=== PATIENT | male | born 1945 | race Caucasian/White ===

== ENCOUNTER 2016-07-18 18:48 | Emergency (ER) | payer MEDICARE, OTHER ==
[~2016-07-18] VITALS: Ht 172.7 cm; Wt 94.9 kg
[~2016-07-18 18:48] MED LIST: 1-ME1LIQ PO; ALLO100T PO; INDA2.5T PO; LATA0.00 OP; LISI-366 PO; RIVA15 PO; ROSU5 PO; SINE25TA PO
[2016-07-18 18:58] VITALS: BP_SYST 174; BP_DIAS 9; BP_DIAS 97; PULSE 95; RESP 16; TEMP 98.3; O2SAT 98
[2016-07-18] MEDS ORDERED: CARB1TAB52 PO (19:34)
[2016-07-18] MEDS ORDERED: LISI40TA PO (19:34)
[2016-07-18] MEDS ORDERED: ROSU5 PO (19:34)
[2016-07-18] MEDS ORDERED: INDA2.5T (19:34)
[2016-07-18] MEDS ORDERED: LATA0.002 EACH EYE (19:34)
[2016-07-18] MEDS ORDERED: CARB1CAP PO (19:35)
--- NOTE | 2016-07-18 20:53 | PD ---
HPI Chief Complaint: Fall Time Seen by Provider: 19:21 Travel History International Travel<30 days: No Contact w/Intl Traveler<30days: No Traveled to known affect area: No History of Present Illness HPI 70-year-old male arrives to the ER after a mechanical fall. He fell down about 3 fairly short steps. He struck his occipital scalp causing some bleeding. He did not lose consciousness. He has had no neck pain or focal weakness or paresthesia. No vomiting has occurred. He takes a baby aspirin. He takes no other anticoagulation. The fall occurred about 1 hour prior to ER arrival. [facility] Past Medical History High Cholesterol: Yes Diminished Hearing: Yes Glaucoma: Yes Hypertension: Yes Parkinson's Disease: Yes (multisystem atrophy) Past Surgical History Tonsillectomy: Yes Other Surgery: Yes (ganglian cyst removal left hand) Social History Alcohol Use: No Tobacco Use: No Substance Use: No Allergies-Medications (Allergen,Severity, Reaction): Coded Allergies: No Known Allergies (Unverified , 03/23/15) Reported Meds & Prescriptions Reported Meds & Active Scripts Active Reported Rytary ER 8 HR (Carbidopa-Levodopa ER 8 HR) 23.75-95 Mg Cap 1 Cap PO TID Latanoprost Opth Drops (Latanoprost) 0.005% Drops 1 Drop EACH EYE HS Refrigerate until opened. Indapamide 2.5 Mg Tab Lisinopril 40 Mg Tab 40 Mg PO DAILY Carbidopa 25 Mg Tab 25 Mg PO DAILY Crestor (Rosuvastatin Calcium) 5 Mg Tab 5 Mg PO DAILY Review of Systems Except as stated in HPI: all other systems reviewed are Neg Physical Exam Narrative GENERAL: 70-year-old male pleasant well-nourished well-developed SKIN: Focused skin assessment warm/dry. HEAD: Normocephalic. There is a 1 cm linear abrasion in the occipital scalp which would not benefit from staple or suture repair. EYES: Pupils equal and round. No scleral icterus. No injection or drainage. ENT: No nasal bleeding or discharge. Mucous membranes pink and moist. NECK: Trachea midline. No JVD. CARDIOVASCULAR: Regular rate and rhythm. No murmur appreciated. RESPIRATORY: No accessory muscle use. Clear to auscultation. Breath sounds equal bilaterally. GASTROINTESTINAL: Abdomen soft, non-tender, nondistended. Hepatic and splenic margins not palpable. MUSCULOSKELETAL: No obvious deformities. No clubbing. No cyanosis. No edema. NEUROLOGICAL: Awake and alert. The cranial nerves are normal. Patient's moving all extremities normally. PSYCHIATRIC: Appropriate mood and affect; insight and judgment normal. Data Data Last Documented VS Vital Signs Date Time Temp Pulse Resp B/P Pulse Ox O2 Delivery O2 Flow Rate FiO2 07/18/16 20:21 Room Air 07/18/16 18:58 98.3 95 16 174/97 98 Vital signs reviewed Orders Ct Brain W/O Iv Contrast(Rout) (07/18/16 19:29) Tetanus/Diphtheria Tox Adult (Tetanus/Di (07/18/16 21:00) MDM Medical Decision Making Medical Screen Exam Complete: Yes Emergency Medical Condition: Yes Medical Record Reviewed: Yes Differential Diagnosis Contusion of the scalp, skull fracture, intracranial hemorrhage Narrative Course Pt suffered scalp abrasion from fall. Head CT shows no ICH. OK for discharge. F/u with PMD as needed. Diagnosis Primary Impression: Fall Qualified Code: W19.XXXA - Fall, initial encounter Additional Impression: Scalp abrasion Qualified Code: S00.01XA - Scalp abrasion, initial encounter Referrals: Primary Care Physician 2 days Additional Instructions: You have a choice when it comes to health care, and we are glad that you chose [facility]. Hopefully, we have met your expectations on today's visit. You are welcome to return to [facility] at any time, as we are committed to meeting the health care needs of our community. Med/Other Pt SpecificInfo: No Change to Meds Disposition: 01 DISCHARGE HOME Condition: Stable Jarrod Newman MD Jul 18, 2016 20:53
[2016-07-18] MEDS ORDERED: TETANUS/DIPHTHERIA TOXOID ADULT 0.5 ML VIAL IM ONE (21:00)
--- NOTE | 2016-07-18 21:00 | RADHPO ---
EXAM DATE/TIME: 07/18/2016 20:23 [place] COMPARISON: No previous studies available for comparison. INDICATIONS : Trauma, fall. RADIATION DOSE: 58.49 CTDIvol (mGy) MEDICAL HISTORY : Hypertension. Parkinsons. SURGICAL HISTORY : None. ENCOUNTER: Initial ACUITY: 1 day PAIN SCALE: 5/10 LOCATION: cranial TECHNIQUE: Multiple contiguous axial images were obtained of the head. Using automated exposure control and adj ustment of the mA and/or kV according to patient size, radiation dose was kept as low as reasonably a chievable to obtain optimal diagnostic quality images. FINDINGS: CEREBRUM: The ventricles are normal for age. No evidence of midline shift, mass lesion, hemorrhage or acute in farction. No extra-axial fluid collections are seen. Atrophy and chronic white matter low-attenuatio n noted.POSTERIOR FOSSA: The cerebellum and brainstem are intact. The 4th ventricle is midline. The cerebellopontine angle i s unremarkable. EXTRACRANIAL: Small right posterior parietal scalp contusion. SKULL: The calvaria is intact. No evidence of skull fracture. CONCLUSION: 1. No bleed or other acute intracranial abnormality. 2. Right parietal scalp contusion. 3. Atrophy and chronic white matter changes. Ralph Mishra MD on July 18, 2016 at 20:57 Board Certified Radiologist. This report was verified electronically.
[2016-07-18 21:13] VITALS: BP 194/80; PULSE 87; O2SAT 99
== END 2016-07-18 21:42 | disposition home or self-care (01) ==
LOC: PHED 18:48
DX: S00.01XA Abrasion of scalp, initial encounter (principal); E78.00 Pure hypercholesterolemia, unspecified; I10 Essential (primary) hypertension; G20 Parkinson's disease; Z23 Encounter for immunization; W10.9XXA Fall (on) (from) unspecified stairs and steps, initial encounter; Y93.89 Activity, other specified; Y92.9 Unspecified place or not applicable; Y99.8 Other external cause status
CPT/HCPCS: 70450; 90471; 90714

== ENCOUNTER 2016-08-18 16:31 | Emergency (ER) | payer MEDICARE, OTHER ==
[~2016-08-18] VITALS: Ht 172.7 cm; Wt 96.4 kg
[~2016-08-18 16:31] MED LIST changes: -1-ME1LIQ PO; -ALLO100T PO; +CARB1CAP PO; +CARB1TAB52 PO; +INDA2.5T; -INDA2.5T PO; -LATA0.00 OP; +LATA0.002 EACH EYE; -LISI-366 PO; +LISI40TA PO; -RIVA15 PO; -SINE25TA PO
[2016-08-18 16:48] VITALS: BP 161/88; PULSE 86; RESP 16; TEMP 97.7; O2SAT 98
[2016-08-18 17:02] VITALS: BP 176/91; PULSE 81; RESP 18; O2SAT 99
[2016-08-18] MEDS ORDERED: CEPHALEXIN MONOHYDRATE 500 MG CAP PO ONE (17:15)
[2016-08-18] MEDS ORDERED: SULFAMETHOXAZOLE-TRIMETHOPRIM DS 800-160 MG TAB PO ONE (17:15)
[2016-08-18] MEDS ORDERED: CARB25TA16 PO (17:20)
[2016-08-18] MEDS ORDERED: AMLO10TA2 PO (17:20)
[2016-08-18] MEDS ORDERED: MIDO5TAB PO (17:20)
[2016-08-18] MEDS ORDERED: CEPH-460 PO (17:22)
[2016-08-18] MEDS ORDERED: BACT800T5 PO (17:22)
--- NOTE | 2016-08-18 17:22 | PD ---
HPI Chief Complaint: Skin Problem Time Seen by Provider: 16:53 Travel History International Travel<30 days: No Contact w/Intl Traveler<30days: No Traveled to known affect area: No History of Present Illness HPI So well 70-year-old man who presents to the emergency department 4 days a red spot on his left leg. First dose 4 days ago. More tender low but more red during that time. He otherwise has been feeling generally well and healthy. He has trouble with chronic edema in the leg is had a DVT following a leg injury in the past. He denies any change in swelling. No calf pain. No other complaints. 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 Indapamide 2.5 Mg Tab Lisinopril 40 Mg Tab 40 Mg PO DAILY Carbidopa 25 Mg Tab 25 Mg PO DAILY Crestor (Rosuvastatin Calcium) 5 Mg Tab 5 Mg PO DAILY Review of Systems Except as stated in HPI: all other systems reviewed are Neg Physical Exam Narrative GENERAL: Well-appearing 70-year-old man, no acute distress. SKIN: Focused skin assessment warm/dry. He has about a 3 x 4 cm area of erythema redness on the left leg. There is some central induration. There is no palpable fluctuance. There is no streaking. CARDIOVASCULAR: Warm and well perfused. RESPIRATORY: Normal rate and effort. MUSCULOSKELETAL: There is some asymmetry in the lower extremities. There is trace edema in the left lower extremity. No calf tenderness. NEUROLOGICAL: Awake and alert. No gross deficits. Data Data Last Documented VS Vital Signs Date Time Temp Pulse Resp B/P Pulse Ox O2 Delivery O2 Flow Rate FiO2 08/18/16 17:02 81 18 176/91 99 Room Air 08/18/16 16:48 97.7 Orders Cephalexin (Keflex) (08/18/16 17:15) Sulfamet-Trimeth Ds 800-160 Mg (Bactrim (08/18/16 17:15) MDM Medical Decision Making Medical Screen Exam Complete: Yes Emergency Medical Condition: Yes Differential Diagnosis Insect bite, abscess, phlegmon, cellulitis, DVT, other Narrative Course Medical decision making This Is a 70 year-old man who presents to the emergency department complaining of area of inflammation redness on his left leg. His a history of DVT and some chronic edema in that leg. Is been no change. Until seeing other evidence of DVT. This is likely a skin infection. I don't feel any evidence of fluctuance. There is some central induration. We'll place him on antibiotics. We'll monitor this. If it progresses to abscess or return to the emergency department. He develops any calf pain tenderness or swelling he will return to the emergency department for further evaluation. Diagnosis Primary Impression: Soft tissue infection Additional Instructions: Take antibiotics as prescribed. Return to the emergency department for any worsening pain redness or swelling, or if he develop any worsening swelling or pain in the calf on the left. Follow-up with your primary doctor in the next 2-4 days for repeat evaluation. Med/Other Pt SpecificInfo: Prescription(s) given Scripts Sulfamethoxazole-Trimethoprim (Bactrim DS)800-160 Mg Tab1 Tab PO BID 7 Days Ref 0 Prov:Gabriel Reese MD 08/18/16 Cephalexin (Keflex)500 Mg Qth537 Mg PO Q8H 7 Days Ref 0 Prov:Gabriel Reese MD 08/18/16 Disposition: 01 DISCHARGE HOME Condition: Stable Gabriel Reese MD August 18, 2016 17:22
== END 2016-08-18 17:45 | disposition home or self-care (01) ==
LOC: PHED 16:31
DX: B99.9 Unspecified infectious disease (principal); Z86.718 Personal history of other venous thrombosis and embolism
CPT/HCPCS: 99282